=== PATIENT | female | born 1995 ===

== ENCOUNTER 2016-09-06 18:31 | Emergency (ER) | payer SELFPAY ==
[2016-09-06 18:52] VITALS: BP 118/63; PULSE 68; RESP 19; TEMP 98.6; O2SAT 100
--- NOTE | 2016-09-06 20:23 | ED PDOC ---
HPI: Female Pain Time Seen by Provider: 09/06/16 19:04 Chief Complaint (Nursing): Female Genitourinary Chief Complaint (Provider): Vaginal Disharge History Per: Patient History/Exam Limitations: no limitations Onset/Duration Of Symptoms: Days (1 day) Current Symptoms Are (Timing): Still Present Severity: Mild Pain Scale Rating Of: 0 Quality Of Discomfort: Cramping Associated Symptoms: denies: Fever, Nausea, Vomiting, Urinary Symptoms Additional Complaint(s): Heidi Soto is a 20 year old female, with no pertinent past medical history, who presents to the emergency department for the evaluation of white, malodorous, non-bloody vaginal discharge, inclusive of mild, cramping pelvic pain, that the patient has been experiencing for 1 day. Patient reports that her symptoms are consistent with similar episodes of previous bacterial infections, which she reports that she was prescribed a transvaginal cream for. Denies a fever, nausea , vomiting, dysuria, hematuria, or urinary frequency. PMD: [facility] Abnormal Vaginal Bleeding: No Past Medical History Reviewed: Historical Data, Nursing Documentation, Vital Signs Vital Signs: Last Vital Signs Temp 98.6 F 09/06/16 18:50 Pulse 68 09/06/16 18:50 Resp 19 09/06/16 18:50 BP 118/63 09/06/16 18:50 Pulse Ox 100 09/06/16 18:50 - Medical History PMH: No Chronic Diseases - Surgical History Surgical History: No Surg Hx - Family History Family History: States: No Known Family Hx - Social History Current smoker - smoking cessation education provided: Yes Alcohol: None Drugs: Denies - Home Medications Home Medications: Ambulatory Orders Medication Instructions Recorded Fluconazole [Diflucan] 150 mg PO QWK #2 tab 09/06/16 metroNIDAZOLE [Flagyl] 250 mg PO TID #21 tab 09/06/16 - Allergies Allergies/Adverse Reactions: Allergies Allergy/AdvReac Type Severity Reaction Status Date / Time No Known Allergies Allergy Verified 09/06/16 18:50 Review of Systems ROS Statement: Except As Marked, All Systems Reviewed And Found Negative Constitutional: Negative for: Fever Gastrointestinal: Negative for: Nausea, Vomiting Genitourinary Female: Positive for: Vaginal Discharge (white, malodorous), Pelvic Pain (mild). Negative for: Dysuria, Frequency, Hematuria, Vaginal Bleeding Physical Exam - Reviewed Nursing Documentation Reviewed: Yes Vital Signs Reviewed: Yes - Physical Exam Appears: Positive for: Well, Non-toxic, No Acute Distress Head Exam: Positive for: ATRAUMATIC, NORMOCEPHALIC Skin: Positive for: Warm, Dry Gastrointestinal/Abdominal: Positive for: Normal Exam, Soft. 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 Negative for: L CVA Tenderness, R CVA Tenderness Lymphatic: Negative for: Adenopathy Neurologic/Psych: Positive for: Alert, Oriented - ECG O2 Sat by Pulse Oximetry: 100 (RA) Pulse Ox Interpretation: Normal Medical Decision Making Medical Decision Makin:04 Initial Impression: Vaginal discharge Initial Plan: * Chlamydia/GC RNA, TMA * Urine * Urinalysis * Genital Culture * Reevaluation Scribe Attestation: Documented by Jordan Beckett, acting as a scribe for Allie Noriega MD. Provider Scribe Attestation: All medical record entries made by the Scribe were at my direction and personally dictated by me. I have reviewed the chart and agree that the record accurately reflects my personal performance of the history, physical exam, medical decision making, and the department course for this patient. I have also personally directed, reviewed, and agree with the discharge instructions and disposition. Disposition - Clinical Impression Clinical Impression: Vaginal discharge Counseled Patient/Family Regarding: Studies Performed, Diagnosis, Need For Followup, Rx Given - Disposition Referrals: [facility] [place] [Outside] (PLEASE FOLLOW UP AT CLINIC IN 2 WEEKS FOR REEVALUATION) Disposition: Routine/Home Disposition Time: 20:00 Condition: GOOD Prescriptions: Fluconazole [Diflucan] 150 mg PO QWK #2 tab metroNIDAZOLE [Flagyl] 250 mg PO TID #21 tab Instructions: Vaginitis (ED)
[2016-09-06] MEDS ORDERED: cefTRIAXone (Rocephin) 250 mg Inj IM ONE (20:52)
[2016-09-06] MEDS ORDERED: cefTRIAXone (Rocephin) 250 mg Inj ONE (21:00)
[2016-09-06 21:41] LABS: RBC URINE 3 /hpf (0-3); URINE BACTERIA OCC (<OCC); URINE BILIRUBIN NEGATIVE (NEGATIVE); URINE BLOOD NEGATIVE (NEGATIVE); URINE COLOR YELLOW (YELLOW); URINE GLUCOSE (UA) NEG (Normal); URINE KETONE NEGATIVE (NEGATIVE); URINE LEUKOCYTE ESTERASE TRACE Leu/uL (Negative); URINE PROTEIN 30 mg/dL (NEGATIVE); URINE UROBILINOGEN 0.2-1.0 mg/dL (0.2-1.0)
== END 2016-09-06 21:12 | disposition home or self-care (01) ==
LOC: H.ER 18:31
DX: N76.0 Acute vaginitis (principal); F17.200 Nicotine dependence, unspecified, uncomplicated
CPT/HCPCS: 81003; 87070; 87491; 87591; 96372; 99283; J0696

== ENCOUNTER 2016-12-12 15:23 | Emergency (ER) | payer MEDICAID ==
[2016-12-12 15:39] VITALS: BP 108/80; PULSE 95; RESP 16; TEMP 98.1; O2SAT 100
--- NOTE | 2016-12-12 15:57 | ED PDOC ---
HPI: Dental Pain/Injury Time Seen by Provider: 12/12/16 15:52 Chief Complaint (Nursing): Dental Pain Chief Complaint (Provider): canker sore History Per: Patient History/Exam Limitations: no limitations Additional Complaint(s): 21yo F in Ed for eval of sore in lower lower mucusoa x 3d with burning and pain to area. admits to recovring from the common cold last week. 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 no recent oral sex. no fever chills no oral bleeing no tongue swelling no body aches or muscle pain. no sore thoart Past Medical History Reviewed: Historical Data, Nursing Documentation, Vital Signs Vital Signs: Last Vital Signs Temp 98.1 F 12/12/16 15:36 Pulse 95 H 12/12/16 15:36 Resp 16 12/12/16 15:36 BP 108/80 12/12/16 15:36 Pulse Ox 100 12/12/16 15:36 - Medical History PMH: No Chronic Diseases - Family History Family History: States: No Known Family Hx - Home Medications Home Medications: Ambulatory Orders Medication Instructions Recorded Fluconazole [Diflucan] 150 mg PO QWK #2 tab 09/06/16 metroNIDAZOLE [Flagyl] 250 mg PO TID #21 tab 09/06/16 Benzocaine [Anbesol] 1 gm MM DAILY #1 gel 12/12/16 Carbamide Peroxide [Antiseptic 5 - 10 ml MM DAILY #60 solution 12/12/16 Mouth Cleanser] - Allergies Allergies/Adverse Reactions: Allergies Allergy/AdvReac Type Severity Reaction Status Date / Time No Known Allergies Allergy Verified 12/12/16 15:36 Review of Systems ROS Statement: Except As Marked, All Systems Reviewed And Found Negative ENT: Positive for: Mouth Pain Physical Exam - Reviewed Nursing Documentation Reviewed: Yes Vital Signs Reviewed: Yes - Physical Exam Appears: Positive for: Well, Non-toxic, No Acute Distress Skin: Positive for: Normal Color, Warm, DRY ENT: Positive for: Other (mouth: lower inner lip with lesions-central ulceration and surrodnign ertyhema no tongue swelling, lip swelling ). Negative for: Sinus Pain/Drainage, Nasal Congestion, Pharyngeal Erythema, Tonsillar Exudate, Tonsillar Swelling Cardiovascular/Chest: Positive for: Regular Rate, Rhythm Respiratory: Positive for: CNT, Normal Breath Sounds Neurologic/Psych: Positive for: Alert, Oriented - ECG O2 Sat by Pulse Oximetry: 100 Medical Decision Making Medical Decision Making: dx: canker sores advised to increased fluids, Vit. C, rx antiseptic oral wash and anebsol. Disposition - Clinical Impression Clinical Impression: Canker sore - Patient ED Disposition Is Patient to be Admitted: No Counseled Patient/Family Regarding: Need For Followup, Rx Given - Disposition Disposition: Routine/Home Disposition Time: 16:00 Condition: STABLE Prescriptions: Benzocaine [Anbesol] 1 gm MM DAILY #1 gel Carbamide Peroxide [Antiseptic Mouth Cleanser] 5 - 10 ml MM DAILY #60 solution Instructions: Canker Sores (ED) Forms: [employer] ([place])
== END 2016-12-12 16:31 | disposition home or self-care (01) ==
LOC: H.ER 15:23
DX: K12.0 Recurrent oral aphthae (principal)